=== PATIENT | male | born 1950 | race Caucasian/White ===

== ENCOUNTER 2024-01-12 12:30 | Inpatient (IN) | payer MEDICARE ==
[2024-01-30] MEDS ORDERED: Vancomycin 1 GM VIAL ONE (06:38)
[2024-01-30] MEDS ORDERED: PROPOFOL 20 ML ONE (06:43)
[2024-01-30] MEDS ORDERED: Fentanyl 250 MCG/5 ML VIAL ONE ×2 (06:43→09:52)
[2024-01-30] MEDS ORDERED: Lidocaine 1% PF 5 ML VIAL ONE (06:44)
[2024-01-30] MEDS ORDERED: Rocuronium Bromide 10 MG/ML (10ML VIAL) ONE (06:44)
[2024-01-30] MEDS ORDERED: Sodium Chloride 0.9% 100 ML ONE (07:03)
[2024-01-30] MEDS ORDERED: CEFAZOLIN 2 GM VIAL ONE (07:03)
[2024-01-30] MEDS ORDERED: Milk Of Magnesia 30 ML UDCUP PO PRN (07:07)
[2024-01-30] MEDS ORDERED: traMADol HCl 50 MG TAB PO PRN (07:07)
[2024-01-30] MEDS ORDERED: HYDROcodone/Acetaminophen 10/325 mg Tablet PO PRN (07:07)
[2024-01-30] MEDS ORDERED: Morphine 2 MG/ML VIAL SLOW IVP PRN (07:07)
[2024-01-30] MEDS ORDERED: Mag-Al 1200 mg/1200 mg/30 ML UDCUP PO PRN (07:07)
[2024-01-30] MEDS ORDERED: Promethazine 25 MG TAB PO PRN (07:07)
[2024-01-30] MEDS ORDERED: Ondansetron PF 4 MG/2 ML Vial IVP PRN (07:07)
[2024-01-30] MEDS ORDERED: Midazolam HCl 2 mg/2 ml Vial ONE (07:08)
[2024-01-30] MEDS ORDERED: Dextrose 50% Abboject 50 ML SYRINGE SLOW IVP PRN (07:10)
[2024-01-30] MEDS ORDERED: Glucagon 1 MG/ML KIT IM PRN (07:10)
[2024-01-30] MEDS ORDERED: Dextrose 5% in Water 1,000 ML IV PRN (07:10)
[2024-01-30] MEDS ORDERED: Insulin Lispro 100 UNIT/ML 10 ML VIAL SC PRN ×2 (07:10→17:15)
[2024-01-30] MEDS ORDERED: Dexamethasone 20 MG/5 ML VIAL ONE (07:55)
[2024-01-30] MEDS ORDERED: Ondansetron PF 4 MG/2 ML Vial ONE (07:55)
[2024-01-30] MEDS ORDERED: PHENYLEPHRINE-NS 100 MCG/ML 10 ML SYRINGE ONE (08:05)
[2024-01-30] MEDS ORDERED: ePHEDrine Sulfate 50 MG/10 ML VIAL ONE (08:23)
[2024-01-30] MEDS ORDERED: SUGAMMADEX SODIUM 200 MG/2 ML VIAL ONE (08:37)
[2024-01-30] MEDS ORDERED: Lidocaine 2% PF 5 ML VIAL ONE (08:37)
[2024-01-30] MEDS: Finasteride 5 MG TAB PO SCH (11:56)
[2024-01-30] MEDS: Sodium Chloride 0.9% 1,000 ML IV SCH (11:56)
[2024-01-30] MEDS: Gabapentin 300 MG CAP PO SCH (11:56)
[2024-01-30] MEDS: Lisinopril 20 MG TAB PO SCH (11:57)
[2024-01-30] MEDS: Pantoprazole DR 40 MG TAB PO SCH (11:57)
[2024-01-30 12:59] VITALS: BMI 36.9
[2024-01-30] MEDS: HYDROcodone/Acetaminophen 10/325 mg Tablet PO PRN (13:19)
[2024-01-30] MEDS: CEFAZOLIN 2 GM in Sodium Chloride 0.9% 100 ML IVPB SCH (14:25)
[2024-01-30] MEDS ORDERED: HumaLOG 300 UNITS/3 ML VIAL SC PRN (15:59)
[2024-01-30] MEDS: Cyclobenzaprine 10 MG TAB PO PRN (16:08)
[2024-01-30] MEDS: Tamsulosin HCl 0.4 MG CAP PO SCH (19:56)
[2024-01-31] MEDS: Levothyroxine Sodium 75 MCG TAB PO SCH (05:14)
[2024-01-31 08:06] VITALS: BP 147/76; TEMP 98.7
[2024-01-31] MEDS: Cyanocobalamin (Vitamin B-12) 1,000 MCG TAB PO SCH (08:10)
[2024-01-31] MEDS: Empagliflozin 10 MG TAB PO SCH (08:10)
[2024-01-31] MEDS: Glimepiride 4 MG TAB PO SCH (08:10)
[2024-01-31] MEDS ORDERED: SITAGLIPTIN PHOSPHATE 100 MG PO SCH (09:00)
[2024-01-31] MEDS ORDERED: Saxagliptin 2.5 MG TAB PO SCH (09:00)
== END 2024-01-31 09:30 | disposition home or self-care (01) | DRG 460 ==
LOC: SURG A 01-30 06:09
PROVIDERS: ADMIT Neurological Surgery; ATTEND Neurological Surgery
PROC: 0SG1071 Fusion of 2 or more Lumbar Vertebral Joints with Autologous Tissue Substitute, Posterior Approach, Posterior Column, Open Approach (ICD-10-PCS; principal; 2024-01-30)
PROC: 01NB0ZZ Release Lumbar Nerve, Open Approach (ICD-10-PCS; 2024-01-30)
PROC: 0SP004Z Removal of Internal Fixation Device from Lumbar Vertebral Joint, Open Approach (ICD-10-PCS; 2024-01-30)
DX: M48.061 Spinal stenosis, lumbar region without neurogenic claudication (principal); M54.16 Radiculopathy, lumbar region; I10 Essential (primary) hypertension; E78.5 Hyperlipidemia, unspecified; E11.9 Type 2 diabetes mellitus without complications; Z96.651 Presence of right artificial knee joint; E03.9 Hypothyroidism, unspecified; E66.9 Obesity, unspecified; G89.4 Chronic pain syndrome; N40.0 Benign prostatic hyperplasia without lower urinary tract symptoms; K21.9 Gastro-esophageal reflux disease without esophagitis; Z88.1 Allergy status to other antibiotic agents; Z68.36 Body mass index [BMI] 36.0-36.9, adult
CPT/HCPCS: C1713; C1889; J1100; J1815; J2001; J2250; J2405; J2704; J3010; J3370

== ENCOUNTER 2025-02-05 09:14 | Outpatient (CLI) | payer MEDICARE | END 2025-02-05 09:15 | disposition home or self-care (01) | LOC: BICRAD 09:14 | PROVIDERS: ATTEND Family Medicine | DX: M54.2 Cervicalgia (principal); M25.512 Pain in left shoulder; M47.812 Spondylosis without myelopathy or radiculopathy, cervical region; M19.012 Primary osteoarthritis, left shoulder | CPT/HCPCS: 72050 ==